=== PATIENT | female | born 1940 | race Caucasian/White ===

== ENCOUNTER 2021-02-01 19:41 | Emergency (ER) | payer MEDICARE, OTHER ==
[~2021-02-01] VITALS: Ht 161.3 cm; Wt 60.0 kg
[2021-02-01 20:22] VITALS: BP 193/73
[2021-02-01] MEDS ORDERED: ibuprofen tablet 400 MG TABLET PO ONE (21:40)
== END 2021-02-01 22:04 | disposition home or self-care (01) ==
LOC: ER 19:41
DX: M79.642 Pain in left hand (principal)
CPT/HCPCS: 29125; 73130; 99283

== ENCOUNTER 2021-06-03 12:14 | Emergency (ER) | payer MEDICARE, OTHER ==
[~2021-06-03] VITALS: Ht 160 cm; Wt 61.4 kg
[2021-06-03 12:35] VITALS: BP 130/56
[2021-06-03] MEDS ORDERED: AMOX-117 PO (13:03)
[2021-06-03] MEDS ORDERED: dexamethasone sod phosphate 10mg/ml inj PO STA (13:03)
[2021-06-03] MEDS ORDERED: amox tr/potassium clavulanate 875/125mg TAB PO ONE (13:05)
== END 2021-06-03 13:19 | disposition home or self-care (01) ==
LOC: ER 12:15
DX: J36 Peritonsillar abscess (principal); R60.9 Edema, unspecified; R05.9 Cough, unspecified; Z88.8 Allergy status to other drugs, medicaments and biological substances
CPT/HCPCS: 99283; J1100

== ENCOUNTER 2022-04-20 16:07 | Emergency (ER) | payer BC ==
[~2022-04-20] VITALS: Ht 160 cm; Wt 62.7 kg
[2022-04-20 16:25] VITALS: BP 154/85
[2022-04-20] MEDS ORDERED: amox tr/potassium clavulanate 875/125mg TAB PO ONE (17:10)
[2022-04-20] MEDS ORDERED: AMOX-117 PO (17:14)
== END 2022-04-20 17:36 | disposition home or self-care (01) ==
LOC: ER 16:08
DX: J20.9 Acute bronchitis, unspecified (principal); Z88.8 Allergy status to other drugs, medicaments and biological substances
CPT/HCPCS: 87081; 87880; 99283

== ENCOUNTER 2024-05-19 07:10 | Day surgery (SDC) | payer BC ==
[2024-05-12 16:03] LABS: BASOPHILS # (AUTO) 0.1 X10'3 (0-0.2); BASOPHILS % (AUTO) 0.6 % (0-1); EOSINOPHILS # (AUTO) 0.1 X10'3 (0-0.9); EOSINOPHILS % (AUTO) 1.3 % (0-6); LYMPHOCYTES # (AUTO) 3.6 X10'3 (1.1-4.8); LYMPHOCYTES % (AUTO) 41.3 % (21-51); MEAN CORPUSCULAR HEMOGLOBIN 32.2 PG (27.0-31.0); MEAN CORPUSCULAR HGB CONC 33.7 g/dL (33.0-36.5); MEAN CORPUSCULAR VOLUME 95.5 FL (78-98); MEAN PLATELET VOLUME 8.1 FL (7.4-10.4); MONOCYTES # (AUTO) 0.7 X10'3 (0-0.9); MONOCYTES % (AUTO) 7.4 % (2-12); NEUTROPHILS # (AUTO) 4.3 X10'3 (1.8-7.7); NEUTROPHILS % (AUTO) 49.4 % (42-75); PRE OP HEMATOCRIT 37.2 % (35.0-45.0); PRE OP HEMOGLOBIN 12.5 g/dL (12.0-16.0); PRE OP PLATELET COUNT 276 X10'3 (140-440); PRE OP WHITE BLOOD COUNT 8.8 10'3 (4.8-10.8); RED BLOOD COUNT 3.89 X10'6 (4.20-5.60); RED CELL DISTRIBUTION WIDTH 13.9 % (11.5-14.5)
[2024-05-12 16:21] LABS: ALBUMIN 3.5 G/DL (3.4-5.0); ALBUMIN/GLOBULIN RATIO 0.9 (1.1-1.5); ALKALINE PHOSPHATASE 101 IU/L (46-116); BLOOD UREA NITROGEN 20 MG/DL (7-18); BUN/CREATININE RATIO 22.7 (10.0-20.0); CALCIUM 8.4 MG/DL (8.5-10.1); CHLORIDE 104 MMOL/L (99-107); CREATININE 0.88 MG/DL (0.40-0.90); PRE OP ALT 27 U/L (30-65); PRE OP ANION GAP 5 (8-16); PRE OP AST 20 U/L (10-37); PRE OP BILIRUB, TOTAL 0.3 MG/DL (0.0-1.0); PRE OP GLUCOSE 85 MG/DL (70-104); PRE OP SODIUM 139 MMOL/L (135-145); TOTAL CARBON DIOXIDE 30.3 MMOL/L (24-32); TOTAL PROTEIN 7.5 G/DL (6.4-8.2); eGFR 61 ML/MIN
[2024-05-19] VITALS (9 sets, daily range): BP systolic 150–190; BP diastolic 68–100; PULSE 54–71; RESP 12–16; TEMP 98; O2SAT 69–100
[~2024-05-19] VITALS: Ht 160 cm; Wt 61.5 kg
[2024-05-19] MEDS: ceFAZolin 2gm in dextrose, iso 50 ML IV ONE (05:30)
[~2024-05-19 07:10] MED LIST: BLOOD PRESSURE; BONE; CHOLESTEROL; COLLAGEN; EYE VITAMINS; FISH OIL; JOINT; MUSCLE; MVI; VIT C; VIT D; [UNRECOGNIZED DRUG - OTHER]
[2024-05-19] MEDS: ringers solution, lacted 1,000 ML IV SCH (08:05)
[2024-05-19] MEDS: famotidine 20mg tablet PO ONE (08:05)
[2024-05-19] MEDS ORDERED: morphine 2 MG/ML inj. syringe IV PRN (08:10)
[2024-05-19] MEDS ORDERED: fentaNYL/PF 50MCG/1 ML 2ML syringe IV PRN ×2 (08:10)
[2024-05-19] MEDS ORDERED: ondansetron/PF 4mg/2ml inj IV PRN (08:10)
[2024-05-19] MEDS ORDERED: morphine 4 MG/ML inj SYRINge IV PRN (08:10)
[2024-05-19] MEDS ORDERED: ringers solution, lacted 1,000 ML IV SCH (08:10)
[2024-05-19] MEDS ORDERED: hydrALAZINE 20mg/ml inj. IV PRN (08:10)
[2024-05-19] MEDS ORDERED: LIDOcaine 1% 30ml preserv. free vial ONE (08:56)
[2024-05-19] MEDS ORDERED: BUPIVAcaine 2.5mg/ml inj 50ml vial (contains preservative) ONE (08:57)
[2024-05-19] MEDS ORDERED: sevoflurane 250ml liquid IH ONE (09:08)
[2024-05-19] MEDS ORDERED: midazolam 1 mg/ML 2ml injection ONE (09:17)
[2024-05-19] MEDS ORDERED: fentaNYL/PF 50MCG/1 ML 2ML syringe ONE (09:17)
[2024-05-19] MEDS ORDERED: propofol inj 20 ML IV ONE (09:28)
[2024-05-19] MEDS ORDERED: LIDOcaine 2% (20mg/ml) 5ml vial ONE (09:29)
[2024-05-19] MEDS ORDERED: rocuronium 10mg/ml inj IV ONE (09:29)
[2024-05-19] MEDS ORDERED: glycopyrrolate 0.2mg/ml inj ONE (09:29)
[2024-05-19] MEDS ORDERED: neostigmine methylsulfate 1 MG/ML 10ml vial ONE (09:29)
[2024-05-19] MEDS ORDERED: labetalol 20mg/4ml (5mg/ml) syringe IV ONE (09:43)
[2024-05-19] MEDS: BUPIVAcaine/PF 2.5 mg/ml (0.25%) 30ml vial IJ ONE (09:49)
[2024-05-19] MEDS: labetalol 20mg/4ml (5mg/ml) syringe IV PRN (10:53)
[2024-05-19] MEDS ORDERED: acetaminophen 325mg tablet PO PRN (11:00)
[2024-05-19] MEDS: acetaminophen 1,000mg/100ml IV 100 ML IV ONE (11:45)
== END 2024-05-19 12:13 | disposition home or self-care (01) ==
LOC: PAS 07:10
PROVIDERS: ATTEND Surgery
DX: K40.20 Bilateral inguinal hernia, without obstruction or gangrene, not specified as recurrent (principal); K66.0 Peritoneal adhesions (postprocedural) (postinfection); Z90.49 Acquired absence of other specified parts of digestive tract; Z98.890 Other specified postprocedural states; Z79.899 Other long term (current) drug therapy; Z90.710 Acquired absence of both cervix and uterus; Z82.49 Family history of ischemic heart disease and other diseases of the circulatory system; Z82.3 Family history of stroke
CPT/HCPCS: 36415; 49650; 80053; 82948; 85025; 93005; C1781; J0131; J0690; J1100; J2003; J2250; J2405; J2704; J2710; J3010; J3490; J7030; J7120; S2900; Z7506; Z7508; Z7512; A4215; A4615; A4618